=== PATIENT | male | born 1930 | race Caucasian/White ===

== ENCOUNTER 2016-06-18 10:00 | Inpatient (IN) | payer MEDICARE, OTHER, BC ==
[~2016-06-18] VITALS: Ht 182.9 cm; Wt 101.6 kg
[~2016-06-18 10:00] MED LIST: ALENDRONATE SOD70 MG PO; CALCIUM 500 +1 EAC2 PO; CAMPHOR/MENTHOL; COLACE 100MG C100 MG PO; DONEPEZIL HCL10 MG PO; DONEPEZIL HCL5 MG PO; ELIQUIS 5 MG TAB5 MG GT; FLOMAX 0.4 MG0.4 MG PO; FLOVENT DISKUS50 MCG INH; HYDRALAZINE HCL50 MG PO; LASIX40 MG PO; LEVOTHYROXINE75 MCG PO; LISINOPRIL40 MG PO; MIRALAX PACK 171 PKT PO; REFRESH PLUS 0.41 EA OP; TOPROL XL 50 MG50 MG PO; ZANTAC 150 MG150 MG GT; ZOCOR80 MG PO; ZYRTEC10 MG PO; [UNRECOGNIZED DRUG - OTHER] PO
[2016-06-18 11:01] LABS: RED BLOOD COUNT 4.62 M/UL (4.20-5.50); WHITE BLOOD COUNT 5.3 K/UL (4.5-11.0)
[2016-06-18 11:26] LABS: BUN/CREATININE RATIO 22 (0-10)
[2016-06-18] MEDS ORDERED: TOPROL XL 25 MG25 MG PO (23:23)
[2016-06-18] MEDS ORDERED: ELIQUIS 5 MG TAB5 MG PO (23:28)
[2016-06-18] MEDS ORDERED: ZOCOR 40 MG TAB40 MG PO (23:30)
[2016-06-18] MEDS ORDERED: FLOMAX 0.4 MG0.4 MG PO (23:31)
[2016-06-18] MEDS ORDERED: ZANTAC 150 MG150 MG PO (23:32)
[2016-06-18] MEDS ORDERED: ASPIR 8181 MG PO (23:38)
[2016-06-18] MEDS ORDERED: OSCAL 500 + D TA1 EA PO (23:47)
[2016-06-18] MEDS ORDERED: CLARITIN10 M2 PO (23:49)
[2016-06-19 06:44] LABS: HEMOGLOBIN 14.5 gm/dl (14.0-17.5); RED BLOOD COUNT 4.42 M/UL (4.20-5.50); WHITE BLOOD COUNT 5.4 K/UL (4.5-11.0)
[2016-06-19 07:10] LABS: BUN/CREATININE RATIO 17 (0-10)
[2016-06-20 06:02] LABS: HEMOGLOBIN 13.4 gm/dl (14.0-17.5); RED BLOOD COUNT 4.14 M/UL (4.20-5.50); WHITE BLOOD COUNT 5.4 K/UL (4.5-11.0)
[2016-06-20 06:16] LABS: BUN/CREATININE RATIO 19 (0-10)
[2016-06-20] MEDS ORDERED: TYLENOL 325MG325 MG PO (16:11)
[2016-06-20] MEDS ORDERED: ALDACTONE25 MG PO (16:13)
== END 2016-06-20 18:31 | disposition home or self-care (01) | DRG 293 ==
LOC: ER1 10:00 → ZEROF 17:05 → MED SURG 4 22:20 → PROG CARE 23:00 → M/S 06-19 16:57
PROVIDERS: Internal Medicine Infectious Disease; Physician Assistant; ADMIT Internal Medicine
DX: I11.0 Hypertensive heart disease with heart failure (principal); I50.33 Acute on chronic diastolic (congestive) heart failure; A08.4 Viral intestinal infection, unspecified; R09.02 Hypoxemia; I48.2 Chronic atrial fibrillation; Z79.01 Long term (current) use of anticoagulants; D69.6 Thrombocytopenia, unspecified; F03.90 Unspecified dementia, unspecified severity, without behavioral disturbance, psychotic disturbance, mood disturbance, and anxiety; I27.2 Other secondary pulmonary hypertension; E03.9 Hypothyroidism, unspecified; I65.23 Occlusion and stenosis of bilateral carotid arteries; E78.5 Hyperlipidemia, unspecified
CPT/HCPCS: ECHO; 36415; 36600; 71010; 74000; 76705; 80048; 80053; 81001; 82550; 82553; 82803; 83036; 83605; 83690; 83735; 83874; 83880; 84439; 84443; 84484; 85025; 85027; 85610; 87040; 93005; 93306; 94640; 96361; 96374; 96375; 97110; 97116; 99285; J1940; J1956; J2405; J2543; J7050

== ENCOUNTER 2016-07-24 09:37 | Emergency (ER) | payer MEDICARE, OTHER, BC ==
[~2016-07-24 09:37] MED LIST changes: +ALDACTONE25 MG PO; +ASPIR 8181 MG PO; +CLARITIN10 M2 PO; +ELIQUIS 5 MG TAB5 MG PO; +OSCAL 500 + D TA1 EA PO; +TOPROL XL 25 MG25 MG PO; +TYLENOL 325MG325 MG PO; +ZANTAC 150 MG150 MG PO; +ZOCOR 40 MG TAB40 MG PO
[2016-07-24 12:39] LABS: HEMOGLOBIN 13.8 gm/dl (14.0-17.5); RED BLOOD COUNT 4.28 M/UL (4.20-5.50)
== END 2016-07-24 15:00 | disposition home or self-care (01) ==
LOC: ER1 09:37
PROVIDERS: Physician Assistant
DX: S01.81XA Laceration without foreign body of other part of head, initial encounter (principal); S79.911A Unspecified injury of right hip, initial encounter; S69.91XA Unspecified injury of right wrist, hand and finger(s), initial encounter; Z88.2 Allergy status to sulfonamides; W18.30XA Fall on same level, unspecified, initial encounter
CPT/HCPCS: 12013; 36415; 70450; 71010; 72125; 80053; 82550; 82553; 83874; 84484; 85025; 93005; 99285

== ENCOUNTER 2016-07-25 13:27 | Emergency (ER) | payer BC ==
[2016-07-25 14:52] LABS: HEMOGLOBIN 13.5 gm/dl (14.0-17.5); RED BLOOD COUNT 4.18 M/UL (4.20-5.50)
== END 2016-07-25 16:30 | disposition home or self-care (01) ==
LOC: ER1 13:27
PROVIDERS: Preventive Medicine Occupational Medicine
DX: S00.03XA Contusion of scalp, initial encounter (principal); M25.561 Pain in right knee; I25.10 Atherosclerotic heart disease of native coronary artery without angina pectoris; I10 Essential (primary) hypertension; W01.198A Fall on same level from slipping, tripping and stumbling with subsequent striking against other object, initial encounter; Z88.2 Allergy status to sulfonamides
CPT/HCPCS: 36415; 70450; 71010; 73564; 80053; 82150; 82550; 82553; 83690; 83874; 83880; 84484; 85025; 93005; 99284